=== PATIENT | male | born 1980 | race American Indian/Alaskan Native ===

== ENCOUNTER 2017-04-18 23:56 | Emergency (ER) | payer MEDICAID, OTHER ==
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
== END 2017-04-19 01:15 | disposition home or self-care (01) ==
LOC: ER 23:56
DX: R21 Rash and other nonspecific skin eruption (principal)
CPT/HCPCS: 99283; 96372; J0696; Z7502